=== PATIENT | female | born 1970 | race Two or more races ===

== ENCOUNTER → 2020-05-22 | Outpatient (CLI) | payer OTHER | END | disposition home or self-care (01) | LOC: OFIC 805 09:30 | PROVIDERS: ATTEND Otolaryngology Otology & Neurotology | DX: H60.543 Acute eczematoid otitis externa, bilateral (principal); H61.23 Impacted cerumen, bilateral ==

== ENCOUNTER 2020-07-03 09:32 | Outpatient (CLI) | payer OTHER | END 2020-07-03 15:12 | disposition home or self-care (01) | LOC: OFIC 805 09:32 | PROVIDERS: ATTEND Otolaryngology Otology & Neurotology | DX: H60.543 Acute eczematoid otitis externa, bilateral (principal); H61.23 Impacted cerumen, bilateral ==

== ENCOUNTER 2020-08-19 15:12 | Outpatient (CLI) | payer OTHER | END 2020-08-19 16:32 | disposition home or self-care (01) | LOC: OFIC 805 15:12 | PROVIDERS: ATTEND Otolaryngology Otology & Neurotology | DX: H60.543 Acute eczematoid otitis externa, bilateral (principal); H61.23 Impacted cerumen, bilateral ==

== ENCOUNTER 2020-10-07 13:32 | Outpatient (CLI) | payer OTHER | END 2020-10-07 15:48 | disposition home or self-care (01) | LOC: OFIC 805 13:32 | PROVIDERS: ATTEND Otolaryngology Otology & Neurotology | DX: H60.543 Acute eczematoid otitis externa, bilateral (principal); H61.23 Impacted cerumen, bilateral ==